=== PATIENT | female | born 1960 | race Caucasian/White ===

== ENCOUNTER 2020-05-31 12:41 | Observation (INO) | payer BC ==
[~2020-05-31] VITALS: Ht 162.6 cm; Wt 82.0 kg
[~2020-05-31 12:41] MED LIST: CIPROFLOXACN500 MG PO; GLIPIZIDE ER5 MG PO; METFORMIN1000 MG PO; PYRIDIUM200 MG PO; ULTRAM50 M1 PO
--- NOTE | 2020-05-31 12:45 | NUR ---
PT AMBULATORY TO ROOM 6 WITH STEADY GAIT. BEDSIDE TRIAGE COMPLETED
--- NOTE | 2020-05-31 13:15 | NUR ---
COVID SWAB COLLECTED, ISOLATION PRECAUTIONS INITIATED.
[2020-05-31 13:25] LABS: HEMOGLOBIN 13.4 g/dl (12.0-16.0); MEAN CELL VOLUME 87.6 fL CALC (80.0-100.0); MEAN CORPUSCULAR HGB 28.6 pG CALC (26.0-32.0); MEAN CORPUSCULAR HGB CONC 32.7 g/dL CAL (32.0-36.0); NEUT# 1.95 thou/uL (2.00-7.15); RED BLOOD COUNT 4.68 mill/uL (4.20-5.60); RED CELL DISTRI WIDTH 12.1 % (11.5-15.5)
[2020-05-31 13:42] LABS: D-DIMER 0.79 mg/L (0.19-0.60)
[2020-05-31 13:44] LABS: ALBUMIN 3.9 g/dL (3.2-5.0); ALKALINE PHOSPHATASE 96 u/l (38-126); AMYLASE 51 u/l (30-110); BUN 10 mg/dL (7-17); BUN/CREATININE RATIO 16 (12-20 (CALC)); CHLORIDE 98 mmol/l (95-108); CREATININE 0.6 mg/dL (0.5-1.0); GFR > 60 ML/MIN (>=60 (CALC)); GFR FOR AFR.AMER. > 60 ML/MIN (>=60 (CALC)); LIPASE 67 u/l (23-300); POTASSIUM 4.2 mmol/l (3.5-5.1); SGOT/AST 34 u/l (14-36); TOTAL PROTEIN 7.2 g/dL (6.3-8.2)
[2020-05-31 13:45] LABS: ANION GAP 19 (6-22 (CALC)); BILIRUBIN, TOTAL 0.7 mg/dL (0.0-1.4); CARBON DIOXIDE 19 mmol/l (22-30); SODIUM 132 mmol/l (137-146)
[2020-05-31 13:49] LABS: ACT PARTIAL THROMBO TIME 24.1 SECONDS (20.0-32.5); PROTHROMBIN TIME 10.3 SECONDS (9.0-12.5)
--- NOTE | 2020-05-31 14:40 | NUR ---
RETURNED FROM RADIOLOGY VIA WHEELCHAIR, [facility].
--- NOTE | 2020-05-31 15:00 | NUR ---
MD AT BEDSIDE TO DISCUSS RESULTS AND POC.
[2020-05-31 15:58] LABS: C-REACTIVE PROTEIN 7.7 mg/dL (0-0.9)
[2020-05-31 16:04] LABS: URINE BILIRUBIN - DIPSTICK NEGATIVE (NEGATIVE); URINE BLOOD DIPSTICK NEGATIVE (NEGATIVE); URINE COLOR YELLOW; URINE GLUCOSE - DIPSTICK 500 mg/dL (NEGATIVE); URINE KETONE >=80 mg/dL (NEGATIVE); URINE LEUK ESTERASE NEGATIVE (NEGATIVE); URINE PH 5.5 (4.5-8.0); URINE PROTEIN - DIPSTICK TRACE mg/dL (NEG-TRACE); URINE UROBILINOGEN - DIPSTICK 0.2 E.U./dL (0.2)
[2020-05-31 16:06] LABS: URINE NITRITE - DIPSTICK NEGATIVE (Negative)
--- NOTE | 2020-05-31 16:19 | NUR ---
REPORT CALLED TO [facility] ON MED SURG.
--- NOTE | 2020-05-31 16:30 | NUR ---
TO MED SURG VIA STRETCHER, TELE MONITOR IN PLACE.
[2020-05-31 16:51] VITALS: BP 124/68
--- NOTE | 2020-05-31 17:02 | NUR ---
59 YEAR OLD WOMAN ADMITTED TO MED SURG UNUT WITH A DX OF COVID 19/PNEUMONIA. PT IS ALERT AND ORIENTED. ABLE TO MAKE NEEDS KNOWN. PRESENTED TO THE ER WITH CHEST TIGHTNESS AND BODY ACHES. ON ROOM AIR. NO C/O SOB. DENIES PAST FAMILY HEALTH HISTORY, DENIESCURRENT PERSONAL HEALTH HISTORY EXCLUDING DIABETES. EDUCATED ON NEW PRESCRIBED MEDS AND BLOOD SUGAR CONTROL. DEMONTRATED VERBAL FEEDBACK UNDERSTANDING. VS WNL. DENIES SMOKING/ALCOHOL USE/RECREATIONAL USE. DENIES PAIN. ORIENTED TO CALL LIGHT USE FOR ASSISTANCE. BELONGINGS PLACED WITHIN REACH. LUNGS CTA.
--- NOTE | 2020-05-31 18:46 | NUR ---
PT FINISHED EATING DINNER. LYING IN BED WITH EYES CLOSED. NO C/O PAIN OR DISTRESS AT THIS TIME.
[2020-05-31 19:00] VITALS: BP 115/68
--- NOTE | 2020-05-31 19:45 | NUR ---
PATIENT UP IN THE BR-AWAKE ALERT AND ORIENTEDX3. STATES THAT SHE WANTS TO TAKE A SHOWER. PATIENT PROVIDED WITH SHOWER SUPPLIES AND TOWELS. SAFETY PRECAUTIONS REINFORCED. CALL LIGHT IN REACH. WILL CONT TO MONITOR.
--- NOTE | 2020-05-31 21:20 | NUR ---
PATIENT RESTING IN XGM-[id number] WAS 431 TONIGHT. SPOKE WITH SOLITARIO LOREDO APRN AND NEW ORDER FOR HUMALOG WAS OBTAINED AND HUMALOG 15UNITS SQ GIVEN RIGHT ARM. PATIENT PROVIDED WITH HS SNACK. LUNGS ARE CLEAR, NON PRODUCTIVE COUGH NOTED. TELE MONITOR IN PLACE. IV SITE TO LAC INTACT AND FLUSHED. LAST BM WAS YESTERDAY 05/30. DENIES ANY DIFFICULTY WITH URINATION. NO PERIPHERAL EDEMA NOTED AND PEDAL PULSES ARE PALPABLE. PATIENT ON ISOLATION IN NEG PRESSURE ROOM FOR COVID. INSTRUCTED ON USE OF IS Q1H WHILE AWAKE IN REPS OF 10-PATIENT IS ABLE TO DEMONSTRATE PROPER USE OF THE DEVICE. ENCOURAGE PATIENT TO PRONE IF POSSIBLE. SAFETY PRECAUTIONS REINFORCED. CALL LIGHT IN REACH. WILL CONT TO MONITOR.
--- NOTE | 2020-05-31 23:12 | NUR ---
PAIENT RESTING IN BED POSITIONED ON RIGHT SIDE. RESPS ARE EVEN AND UNLABORED. CALL LIGHT IN REACH. WILL CONT TO MONITOR.
[2020-06-01] VITALS: BP 122/59
--- NOTE | 2020-06-01 00:27 | NUR ---
PATIENT UP TO THE BR TO VOID AND THEN BACK TO THE BED. PATIENT WITH COLD SWEATS. ACCU-CHECK CHECKED AND WAS 325. O2 SATS 94% ON ROOM AIR. VS ARE STABLE. TELE IN PLACE. CALL LIGHT IN REACH. WILL CONT TO MONITOR.
[2020-06-01 04:00] VITALS: BP 149/86
--- NOTE | 2020-06-01 04:50 | NUR ---
PATIENT RESTING IN BED AT THIS TIME-AWAKE, ALERT AND ORIENTEDX3. PATIENT PROVIDED WITH BIBLE PER PATIENT REQUEST. PATIENT VERBALIZED SOME CONCERNS REGUARDING HER TREATMENT AND QUESTIONS WERE ANSWERED REGUARDING THE ANTIBIOTICS, STEROIDS AND LAB WORK THAT HAS BEEN ORDERED FOR THIS MORNING. EXPRESSED THAT SHE IS NOT GOING TO STAY HERE AFTER THIS MORNING. REINFORCED PLAN OF CARE WITH PATIENT AND ALLOWED PATIENT TO VERBALIZE HER CONCERNS. REASSURANCE WAS GIVEN. SPOKE WITH NSG SEMICONDUCTOR EQUIPMENT TECHNICIAN REGUARDING PATIENT CONCERNS. CALL LIGHT IN REACH. WILL CONT TO MONITOR.
--- NOTE | 2020-06-01 06:20 | NUR ---
PATIENT APPEARS SLEEPING WITH HER EYES CLOSED. RESPS ARE EVEN AND UNLABORED. TELE MONITOR IN PLACE. IV SITE TO LAC INTACT. CALL LIGHTIN REACH. WILL CONT TO MONITOR.
[2020-06-01 07:29] LABS: HEMATOCRIT 39.8 % (37.0-47.0); HEMOGLOBIN 13.3 g/dl (12.0-16.0); IMMATURE GRANULOCYTES 0.9 % (0.0-5.0); MEAN CELL VOLUME 86.7 fL CALC (80.0-100.0); MEAN CORPUSCULAR HGB CONC 33.4 g/dL CAL (32.0-36.0); NEUT# 2.63 thou/uL (2.00-7.15); RED BLOOD COUNT 4.59 mill/uL (4.20-5.60)
[2020-06-01 07:52] LABS: ALBUMIN 3.9 g/dL (3.2-5.0); ALKALINE PHOSPHATASE 94 u/l (38-126); ANION GAP 16 (6-22 (CALC)); BILIRUBIN, TOTAL 0.6 mg/dL (0.0-1.4); BUN 12 mg/dL (7-17); BUN/CREATININE RATIO 24 (12-20 (CALC)); C-REACTIVE PROTEIN 6.4 mg/dL (0-0.9); CARBON DIOXIDE 22 mmol/l (22-30); CHLORIDE 100 mmol/l (95-108); CREATININE 0.5 mg/dL (0.5-1.0); GFR > 60 ML/MIN (>=60 (CALC)); GFR FOR AFR.AMER. > 60 ML/MIN (>=60 (CALC)); POTASSIUM 4.2 mmol/l (3.5-5.1); SGOT/AST 29 u/l (14-36); SODIUM 134 mmol/l (137-146); TOTAL PROTEIN 7.2 g/dL (6.3-8.2)
[2020-06-01 08:16] VITALS: BP 134/68
--- NOTE | 2020-06-01 08:53 | NUR ---
AWAKE AND ALERT THIS MORNING, READING THE BIBLE. ENCOURAGED TO USE INCENTIVE SPIROMETER. DENIES PAIN AND SOB. APPEARS IN NO ACUTE DISTRESS AT THIS TIME.
[2020-06-01] MEDS ORDERED: DEXAMETHASON6 MG PO (08:55)
[2020-06-01] MEDS ORDERED: ZITHROMAX500 MG PO (08:55)
[2020-06-01] MEDS ORDERED: EC ASPIRIN325 MG PO (08:56)
[2020-06-01] MEDS ORDERED: JANUVIA100 MG PO (08:57)
--- NOTE | 2020-06-01 09:30 | NUR ---
PT C/O L ARM PAIN. BACK SIZER MAIDA NOTIFIED. EKG ORDERED AND VS TAKEN. EKG RESULTS PENDING.
[2020-06-01 09:34] VITALS: BP 168/75
--- NOTE | 2020-06-01 10:18 | NUR ---
PT LAYING BED, EYES CLOSED. GIVEN PRN TYLENOL FOR RELIEF. IV ABTS FLOWING. PT DENIES L ARM PAIN AT THIS TIME. PROVIDER MADE AWARE.
[2020-06-01 10:30] VITALS: BP 125/64
[2020-06-01] MEDS ORDERED: GLIPIZIDE5 M2 PO (10:31)
[2020-06-01] MEDS ORDERED: VITAMIN B12500 MC1 PO (10:41)
[2020-06-01] MEDS ORDERED: OMEGA 31000 MG PO (10:42)
[2020-06-01 15:00] VITALS: BP 141/69
--- NOTE | 2020-06-01 15:02 | NUR ---
PT TO BE DISCHARGED. PROVIDED TEACH AND EDUCATION ON COVID PNEUMONIA, DIABETES AND MEDS. DEMONSTRATED UNDERSTANDING WITH VERBAL FEEDBACK. BELONGINGS ARE WITH PT. PT IS FULLY DRESSED. DENIES PAIN. APPEARS IN NO ACUTE DISTRESS WHILE AWAITING TRANSPORTATION.
--- NOTE | 2020-06-01 15:45 | NUR ---
PT DISCHARGED HOME, SPOUSE ARRIVED TO TRANSPORT.
== END 2020-06-01 15:45 | disposition home or self-care (01) | DRG 177 ==
LOC: ED 12:41 → ED-I 14:55 → ED 15:11 → MS2 15:12
PROVIDERS: Nurse Practitioner; ADMIT Internal Medicine; ATTEND Internal Medicine
DX: U07.1 COVID-19 (principal); J12.82 Pneumonia due to coronavirus disease 2019; E87.1 Hypo-osmolality and hyponatremia; E11.65 Type 2 diabetes mellitus with hyperglycemia; R07.9 Chest pain, unspecified; T38.3X6A Underdosing of insulin and oral hypoglycemic [antidiabetic] drugs, initial encounter; Z91.128 Patient's intentional underdosing of medication regimen for other reason
CPT/HCPCS: G0378; J1650; Q9967

== ENCOUNTER 2020-06-09 22:42 | Inpatient (IN) | payer BC ==
[~2020-06-09] VITALS: Ht 162.6 cm; Wt 78.0 kg
[~2020-06-09 22:42] MED LIST changes: +DEXAMETHASON6 MG PO; +EC ASPIRIN325 MG PO; +GLIPIZIDE5 M2 PO; +JANUVIA100 MG PO; +OMEGA 31000 MG PO; +VITAMIN B12500 MC1 PO; +ZITHROMAX500 MG PO
--- NOTE | 2020-06-09 22:42 | NUR ---
BROUGHT FROM CAR TO ROOM VIA WC.
[2020-06-09] MEDS ORDERED: GLIPIZIDE10 M2 PO (23:14)
[2020-06-09] MEDS ORDERED: INVOKANA100 MG PO (23:16)
[2020-06-09 23:41] LABS: HEMOGLOBIN 15.1 g/dl (12.0-16.0); IMMATURE GRANULOCYTES 2.5 % (0.0-5.0); MEAN CELL VOLUME 87.6 fL CALC (80.0-100.0); MEAN CORPUSCULAR HGB 28.4 pG CALC (26.0-32.0); MEAN CORPUSCULAR HGB CONC 32.4 g/dL CAL (32.0-36.0); NEUT# 6.13 thou/uL (2.00-7.15); RED BLOOD COUNT 5.32 mill/uL (4.20-5.60); RED CELL DISTRI WIDTH 12.6 % (11.5-15.5)
[2020-06-09 23:45] LABS: HEMATOCRIT 46.6 % (37.0-47.0)
[2020-06-09 23:54] LABS: ALKALINE PHOSPHATASE 95 u/l (38-126); AMYLASE 62 u/l (30-110); BILIRUBIN, TOTAL 0.8 mg/dL (0.0-1.4); BUN 22 mg/dL (7-17); BUN/CREATININE RATIO 24 (12-20 (CALC)); CHLORIDE 104 mmol/l (95-108); CREATININE 0.9 mg/dL (0.5-1.0); GFR > 60 ML/MIN (>=60 (CALC)); GFR FOR AFR.AMER. > 60 ML/MIN (>=60 (CALC)); LIPASE 78 u/l (23-300); MAGNESIUM 2.2 mg/dL (1.6-2.3); POTASSIUM 4.4 mmol/l (3.5-5.1); SGOT/AST 20 u/l (14-36); SODIUM 136 mmol/l (137-146)
[2020-06-10] VITALS (15 sets, daily range): BP systolic 96–139; BP diastolic 50–68
[2020-06-10] LABS: ACT PARTIAL THROMBO TIME 24.3 SECONDS (20.0-32.5); PROTHROMBIN TIME 10.5 SECONDS (9.0-12.5)
--- NOTE | 2020-06-10 00:01 | NUR ---
PT ASSISTED TO BSC TO VOID THEN BACK TO BED SR NO ECTOPY NO C/O PAIN W/P/D SKIN
[2020-06-10 00:04] LABS: D-DIMER 1.25 mg/L (0.19-0.60)
[2020-06-10 00:06] LABS: MYOGLOBIN 31 ng/mL (0 - 62)
[2020-06-10 00:07] LABS: ALBUMIN 4.7 g/dL (3.2-5.0); ANION GAP 28 (6-22 (CALC)); CARBON DIOXIDE 8 mmol/l (22-30); TOTAL PROTEIN 9.4 g/dL (6.3-8.2)
[2020-06-10 00:39] LABS: URINE BLOOD DIPSTICK SMALL (NEGATIVE); URINE COLOR YELLOW; URINE GLUCOSE - DIPSTICK >=1000 mg/dL (NEGATIVE); URINE KETONE >=80 mg/dL (NEGATIVE); URINE LEUK ESTERASE NEGATIVE (NEGATIVE); URINE PH 5.5 (4.5-8.0); URINE PROTEIN - DIPSTICK 30 mg/dL (NEG-TRACE); URINE SPECIFIC GRAVITY >=1.030; URINE UROBILINOGEN - DIPSTICK 0.2 E.U./dL (0.2)
[2020-06-10 00:45] LABS: URINE BILIRUBIN - DIPSTICK NEGATIVE (NEGATIVE); URINE NITRITE - DIPSTICK NEGATIVE (Negative)
[2020-06-10 00:51] LABS: URINE RBC 0-2 RBC/hpf (0-5); URINE SQUAMOUS EPITHELIAL CELL FEW EPI/hpf (0-FEW)
[2020-06-10 00:52] LABS: URINE HYALINE CAST FEW lpf (NONE-RARE); URINE MUCUS FEW hpf (NONE-FEW)
--- NOTE | 2020-06-10 01:35 | NUR ---
AWAKENED FROM SLEEP W/P/D SKIN SR NO ST T CHANGES DENIES PAIN.
--- NOTE | 2020-06-10 02:17 | NUR ---
ASLEEP AND WITHOUT COMPLAINT SR NO ST T CHANGES NO ECTOPY.SPOUSE AT BEDSIDE CONTINUOUSLY
--- NOTE | 2020-06-10 03:15 | NUR ---
AWAKENED FROM SLEEP FOR VS ASSESSMENT DENIES PAIN W/P/D SKIN SR NO ST T CHANGES
--- NOTE | 2020-06-10 03:31 | NUR ---
PHONE REPORT TO BINTA ON MS2
--- NOTE | 2020-06-10 03:36 | NUR ---
PT TRANSPORTED TO RM 290 VIA IN STABLE CONDITION
--- NOTE | 2020-06-10 03:40 | NUR ---
PT RECEIVED FROM ED TO ROOM 290. ARRIVES VIA STRETCHER ACCOMPANIED BY DAMIAN BARTH. PT TRANSFERED TO THE BED. PT DENIES PAIN AT THIS TIME. PT IS EXTREMELY LETHARGIC AND ANSWERS QUESTIONS WITH DIFFICULTY STAYING AWAKE. PT ORIENTED TO UNIT, ROOM, CALL BLANCO, LIGHTS, TV. ICE WATER PROVIDED. CALL BLANCO WITHIN REACH. AGREES TO CALL PRN.
--- NOTE | 2020-06-10 04:28 | NUR ---
PHYSICAL ASSESMENT COMPLETE. PT CURRENTLY DENIES PAIN OR DISCOMFORT. SCHEDULED MEDICATIONS AND PRN MEDICATION ADMINISTERED, SEE E-MAR. PT DENIES ANY NEEDS AT THIS TIME. PLAN OF CARE REVIEWED, PT DENIES QUESTIONS, VERBALIZES UNDERSTANDING. ITEMS WITHIN REACH, BED LOCKED IN LOW POSITION W/ BEDRAILS UP X2. CALL BLANCO WITHIN REACH, AGREES TO CALL PRN.
--- NOTE | 2020-06-10 07:35 | NUR ---
PATIENT RESTING IN BED AT THIS TIME. SHOVEL MECHANIC DONE SEE INTERVENTIONS. PATIENT LUNG SOUNDS ASSESSED AND CLEAR IN MIDDLE AND UPPER LOBES BILATERALLY AND DIMINISHED IN LOWER BILATERAL LOBES NOTED. PATIENT DENEIS ANY PAIN AT THIS TIME AND IS ALERT AND ORIENTED X 3 NEURO CHECK REMAINED UNCHANGED SINCE ADMISSION. SIDERAILS ARE UP CALL LIGHT WITHIN REACH.
[2020-06-10 10:20] LABS: ANION GAP 17 (6-22 (CALC)); BUN 17 mg/dL (7-17); BUN/CREATININE RATIO 30 (12-20 (CALC)); CHLORIDE 114 mmol/l (95-108); CREATININE 0.6 mg/dL (0.5-1.0); GFR > 60 ML/MIN (>=60 (CALC)); GFR FOR AFR.AMER. > 60 ML/MIN (>=60 (CALC)); POTASSIUM 3.7 mmol/l (3.5-5.1); SODIUM 136 mmol/l (137-146)
--- NOTE | 2020-06-10 10:27 | NUR ---
MIRANDA FROM LAB CALLED THIS NURSE AND REPORTED A CRITICAL CO2 LEVEL OF [address] GUZMAN HERE AND INFORMATION GIVEN AND ORDERS TO TRANSFER PATIENT TO ICU GIVEN FOR DKA PROTOCOL. ICU NURSE CE CALLED AND PATIENT GIVEN BED 5 TO BE TRANSFERED TO.
[2020-06-10 10:28] LABS: CARBON DIOXIDE 9 mmol/l (22-30)
--- NOTE | 2020-06-10 11:00 | NUR ---
REPORT CALLED TO OSMAR AT THIS TIME. PATIENT TO BE TRANSFERED.
--- NOTE | 2020-06-10 12:00 | NUR ---
RECEIVED PT. FROM MS WITH RN AT BEDSIDE@[id number]. PT. AMBULATORY AND ABLE TO GET INTO BED WITH STEADY GAIT. VSS. ACCUCHECK 151; AWAITING PHARMAY TO FIX BARCODE IN EMAR TO SCAN FOR IVF TO BE HUNG. UPDATED PT. ON POC AND PER PT. SHE WILL CALL AND LET HIM KNOW SHE IS IN ICU NOW, NO NEED FOR STAFF TO CALL. LABORATORY INSPECTOR IN PLACE AND READING SR. EDUCATED SNATH HANDLE ASSEMBLER LIGHT AND ROOM; VERBALIZES UNDERSTANDING.
--- NOTE | 2020-06-10 13:00 | NUR ---
SECOND IV SITE STARTED TO RAC X2 ATTEMPT AND ACCUCHECK 194; INSULIN GTT STARTED @2MLS/HR PER PROTOCOL;WILL CONTINUE TO MONITOR. PT. DENIES NEEDS/PAIN AT THIS TIME. ENCOURAGED TO CALL FOR ANY NEEDS.
[2020-06-10 14:33] LABS: ANION GAP 15 (6-22 (CALC)); BUN 18 mg/dL (7-17); BUN/CREATININE RATIO 32 (12-20 (CALC)); CHLORIDE 114 mmol/l (95-108); CREATININE 0.6 mg/dL (0.5-1.0); GFR > 60 ML/MIN (>=60 (CALC)); GFR FOR AFR.AMER. > 60 ML/MIN (>=60 (CALC)); POTASSIUM 3.9 mmol/l (3.5-5.1); SODIUM 136 mmol/l (137-146)
[2020-06-10 14:37] LABS: CARBON DIOXIDE 11 mmol/l (22-30)
--- NOTE | 2020-06-10 15:20 | NUR ---
DR. GUZMAN UPDATED WITH CURRENT LABS WELL FLUIDS AND LAST ACCUCHECK; NO NEW ORDERS RECEIVED.
--- NOTE | 2020-06-10 17:31 | NUR ---
PT. RESTING IN BED WITH NO DISTRESS NOTED; DENIES NEED/PAIN. CALL LIGHT IS IN REACH. WILL CONTINUE TO MONITOR.
--- NOTE | 2020-06-10 19:30 | NUR ---
RESTING IN BED. AWAKE, ALERT AND ORIENTED X4. RESP NON-LABORD. RA O2 SAT 97% BREATH SOUNDS SLT COARSE IN BILATERAL LOWER LOBES. NON-PRODUCTIVE COUGH. ALVINA HOSE ON. NO PERIPHERAL EDEAMA, PULSES INTACT. IV IN LAC WITH INSULIN GTT AT 3 UNITS/HR AND IV IN RAC WITH D51/2 WITH 40 KCL AT 125 ML/HR. BOTH IV SITES HEALTHY. BAIT TIER SHOWS SR. BLOOD DRAWN FOR CHEMISTRY AND SENT TO LAB. DISCUSSED PLAN OF CARE. DENIES NEEDS AT THIS TIME. CALL BLANCO IN REACH.
[2020-06-10 20:01] LABS: ANION GAP 9 (6-22 (CALC)); BUN 17 mg/dL (7-17); BUN/CREATININE RATIO 27 (12-20 (CALC)); CHLORIDE 112 mmol/l (95-108); CREATININE 0.6 mg/dL (0.5-1.0); GFR > 60 ML/MIN (>=60 (CALC)); GFR FOR AFR.AMER. > 60 ML/MIN (>=60 (CALC)); POTASSIUM 3.9 mmol/l (3.5-5.1); SODIUM 134 mmol/l (137-146)
[2020-06-10 20:02] LABS: CARBON DIOXIDE 17 mmol/l (22-30)
--- NOTE | 2020-06-10 20:30 | NUR ---
INFORMED DR GUZMAN OF CHEM RESULTS. NEW ORDERS RECEIVED.
--- NOTE | 2020-06-10 21:45 | NUR ---
SCHEDULED DOSE OF HUMULIN N 10 UNITS GIVEN AT THIS TIME AND IV FLUIDS CHANGED TO 1/2 NS WITH 20 KCL AT 100 ML/HR ORDERED.
--- NOTE | 2020-06-10 23:45 | NUR ---
INSULIN GTT DC'D ORDERED 2 HOURS AFTER DOSE OF HUMULIN N GIVEN. LAC IV SITE SALINE LOCKED.
[2020-06-11] VITALS (12 sets, daily range): BP systolic 86–121; BP diastolic 41–65
--- NOTE | 2020-06-11 02:00 | NUR ---
RESTING WITH EYES CLOSED. RESP NON-LABORED. VSS. SR ON MONITOR.
--- NOTE | 2020-06-11 04:00 | NUR ---
SLEEPS FOR LONG INTERVALS. VSS. SR ON MONITOR. IV INFUSING WITHOUT INCIDENT.
--- NOTE | 2020-06-11 05:59 | NUR ---
SLEPT WELL. VSS. RESP NON-LABORED. IV INFUSING WITHOUT INCIDENT INTO RAC SITE SALINE LOCK IN LAC.
[2020-06-11 06:20] LABS: IMMATURE GRANULOCYTES 1.7 % (0.0-5.0); MEAN CELL VOLUME 86.4 fL CALC (80.0-100.0); MEAN CORPUSCULAR HGB 28.6 pG CALC (26.0-32.0); MEAN CORPUSCULAR HGB CONC 33.1 g/dL CAL (32.0-36.0); NEUT# 2.18 thou/uL (2.00-7.15); RED BLOOD COUNT 3.98 mill/uL (4.20-5.60); RED CELL DISTRI WIDTH 12.5 % (11.5-15.5)
[2020-06-11 06:22] LABS: HEMATOCRIT 34.4 % (37.0-47.0); HEMOGLOBIN 11.4 g/dl (12.0-16.0)
[2020-06-11 06:35] LABS: ALKALINE PHOSPHATASE 70 u/l (38-126); ANION GAP 9 (6-22 (CALC)); BILIRUBIN, TOTAL 0.6 mg/dL (0.0-1.4); BUN 14 mg/dL (7-17); BUN/CREATININE RATIO 24 (12-20 (CALC)); CARBON DIOXIDE 19 mmol/l (22-30); CHLORIDE 111 mmol/l (95-108); CREATININE 0.6 mg/dL (0.5-1.0); GFR > 60 ML/MIN (>=60 (CALC)); GFR FOR AFR.AMER. > 60 ML/MIN (>=60 (CALC)); POTASSIUM 3.8 mmol/l (3.5-5.1); SGOT/AST 15 u/l (14-36); SODIUM 135 mmol/l (137-146)
[2020-06-11 06:36] LABS: ALBUMIN 2.9 g/dL (3.2-5.0); TOTAL PROTEIN 5.9 g/dL (6.3-8.2)
--- NOTE | 2020-06-11 07:17 | NUR ---
PT REPORT RECEIVED FROM CAKE KNOCKER. PT SLEEPING AT THIS TIME, VITAL SIGNS STABLE.
--- NOTE | 2020-06-11 09:50 | NUR ---
PT RESTING QUIETLY ON BED, DENIES ANY COMPLAINTS AT THIS TIME. VITAL SIGNS STABLE. IV FLUIDS STILL INFUSING JUAN DIEGO 100, ADVISED PT WILL BE TRANSFERRED TO MED SURG TODAY AND SHE VOICED UNDERSTANDING
--- NOTE | 2020-06-11 12:30 | NUR ---
COVID TEST OBTAINED
--- NOTE | 2020-06-11 12:39 | NUR ---
PT RESTING QUIETLY ON BED, NO COMPLAINTS AT THIS TIME.
--- NOTE | 2020-06-11 14:15 | NUR ---
REPORT GIVEN TO MED SURG FOR TRANSFER TO BED 272.
--- NOTE | 2020-06-11 14:28 | NUR ---
REPORT WAS RECEIVED FROM CYRIL SLAUGHTER. PATIENT CAME FROM ICU VIA WHEELCHAIR. PATIENT REQUESTING TO TAKE A SHOWER. GREENSKEEPER LABORER WILL SETUP PATIENT FOR A SHOWER. PATIENT DENIES PAIN OR ANY OTHER NEEDS AT THIS TIME. CALL LIGHT IN REACH.
--- NOTE | 2020-06-11 14:35 | NUR ---
PT TAKEN TO MED SURG PER W/C
--- NOTE | 2020-06-11 16:00 | NUR ---
PATIENT IS RESTING IN BED WITH NO S/S OF DISTRESS NOTED. TELE IN PLACE. PATIENT DENIES NEEDS AT THIS TIME. CALL LIGHT IN REACH.
--- NOTE | 2020-06-11 19:58 | NUR ---
PATIENT RESTING IN BED AT THIS TIME-AWAKE ALERT AND ORIENTEDX3. PATIENT WITH C/O CONSTIPATION WITH NO BM FOR LAST 4 DAYS PER PATIENT. ABD IS SOFT WITH ACTIVE BS. PATIENT MEDICATED WITH MOM AND PRUNE JUICE FOR CONSTIPATION. PATIENT WITH NON PRODUCTIVE COUGH. HX OF COVID A FEW WEEKS AGO. O2 SAT ON RA IS 100%. LUNGS ARE CLEAR. TELE MONITOR IN PLACE. IVF 1/2NS 20MEQ KCL PATENT AND INFUSING VIA RAC SITE AT 100CC/HR. SITE IS HEALTHY. IV TO LAC OCCUDED AND WAS D/C WITH CATH INTACT. SAFETY NPRECAUTIONS REINFORCED. CALL LIGHT IN REACH. WILL CONT TO MONITOR.
--- NOTE | 2020-06-11 21:30 | NUR ---
ACCU-CHECK WAS 240-COVERED WITH HUMALOG 4UNITS SQ PER SLIDING SCALE PROTOCOL. HS SNACK PROVIDED. PATIENT STATES THAT SHE DID HAVE A BM AND THAT SHE IS FEELING BETTER SINCE. SAFETY PRECAUTIONS REINFORCED. CALL LIGHT IN REACH. WILL CONT TO MONITOR.
[2020-06-12] VITALS: BP 119/61
--- NOTE | 2020-06-12 00:31 | NUR ---
PATIENT RESTING IN BED AT THIS TIME-EYES CLOSED, RESPS ARE EVEN AND UNLABORED. IVF PATENT AND INFUSING VIA RAC SITE AT 100CC/HR. TELE MONITOR IN PLACE. CALL LIGHT IN REACH. WILL CONT TO MONITOR.
[2020-06-12 04:00] VITALS: BP 116/65
--- NOTE | 2020-06-12 04:04 | NUR ---
PATIENT CALLED AND STATES THAT SHE IS "CLAMMY". RESPONDED TO PATIENT ROOM-VS TAKEN-116/65, HR-71, O2 SAT 95% ON RA. AFEBRILE-96.9. ACCU-CHECK WAS DONE-181. TELE MONITOR IN PLACE. IVF PATENT AND INFUSING VIA RAC SITE AT 100CC/HR. PATIENT NOW STATES THAT SHE IS FEELING BETTER. LAB WORK TO BE DRAWN. CALL LIGHT IN REACH. WILL CONT TO MONITOR.
--- NOTE | 2020-06-12 04:11 | NUR ---
PATIENT RESTING IN BED-REFUSING AM LAB WORK AT THIS TIME-WILL CONT TO MONITOR.
[2020-06-12 07:21] VITALS: BP 105/68
--- NOTE | 2020-06-12 07:52 | NUR ---
SHIFT CHANGE REPORT, PT SLEEPING BUT AROUSES TO VERBAL STIMULI, NO C/O PAIN BUT STATES SHE DIDNT HAVE A GOOD NIGHT, IVF INFUSING, TELE MONITOR IN PLACE, CALL BLANCO IN REACH.
[2020-06-12 10:52] LABS: HEMATOCRIT 38.7 % (37.0-47.0); HEMOGLOBIN 13.1 g/dl (12.0-16.0); IMMATURE GRANULOCYTES 1.6 % (0.0-5.0); MEAN CORPUSCULAR HGB 29.1 pG CALC (26.0-32.0); MEAN CORPUSCULAR HGB CONC 33.9 g/dL CAL (32.0-36.0); NEUT# 2.2 thou/uL (2.00-7.15); RED BLOOD COUNT 4.5 mill/uL (4.20-5.60); RED CELL DISTRI WIDTH 12.7 % (11.5-15.5)
[2020-06-12 10:53] VITALS: BP 105/55
[2020-06-12 10:59] LABS: ALBUMIN 3.7 g/dL (3.2-5.0); ALKALINE PHOSPHATASE 92 u/l (38-126); ANION GAP 12 (6-22 (CALC)); BILIRUBIN, TOTAL 0.6 mg/dL (0.0-1.4); BUN 13 mg/dL (7-17); BUN/CREATININE RATIO 25 (12-20 (CALC)); CARBON DIOXIDE 26 mmol/l (22-30); CHLORIDE 99 mmol/l (95-108); CREATININE 0.5 mg/dL (0.5-1.0); GFR > 60 ML/MIN (>=60 (CALC)); GFR FOR AFR.AMER. > 60 ML/MIN (>=60 (CALC)); POTASSIUM 3.8 mmol/l (3.5-5.1); SGOT/AST 27 u/l (14-36); SODIUM 133 mmol/l (137-146); TOTAL PROTEIN 6.9 g/dL (6.3-8.2)
--- NOTE | 2020-06-12 12:00 | NUR ---
RESTING IN BED, STATES SHE DID NOT SLEEP LAST NIGHT AND WOULD LIKE TO REST, ADVISED HOSP IS NOT THE BEST PLACE TO REST AND STAFF HAS TO CONSTANTLY ASSESS AND MONITOR, CALL BLANCO IN REACH.
[2020-06-12] MEDS ORDERED: JANUVIA100 MG PO (13:48)
[2020-06-12] MEDS ORDERED: GLIPIZIDE5 M2 PO (13:48)
[2020-06-12] MEDS ORDERED: HUMULIN N100 UNIT/M SC (14:01)
[2020-06-12] MEDS ORDERED: ACCU-CHEK FASTCLIX L XX (14:03)
[2020-06-12 15:48] VITALS: BP 100/54
--- NOTE | 2020-06-12 16:03 | NUR ---
Discharge instructions given. Patient verbalizes understanding of same. Discharged in fair condition via Wheelchair to Home with spouse. All belongings sent with pt.
== END 2020-06-12 16:04 | disposition home or self-care (01) | DRG 638 ==
LOC: ED 22:42 → ED-I 06-10 02:50 → ED 06-10 03:07 → MS2 06-10 03:08 → ICU 06-10 11:40 → MS2 06-11 14:28
PROVIDERS: Family Medicine; Nurse Practitioner; Nurse Practitioner Family; ADMIT Internal Medicine; ATTEND Internal Medicine
DX: E11.10 Type 2 diabetes mellitus with ketoacidosis without coma (principal); E87.1 Hypo-osmolality and hyponatremia; Z79.84 Long term (current) use of oral hypoglycemic drugs; Z86.16 Personal history of COVID-19
CPT/HCPCS: J1650; Q9967

== ENCOUNTER 2021-08-21 17:58 | Emergency (ER) | payer BC ==
[~2021-08-21 17:58] MED LIST changes: +ACCU-CHEK FASTCLIX L XX; +GLIPIZIDE10 M2 PO; +HUMULIN N100 UNIT/M SC; +INVOKANA100 MG PO
== END 2021-08-21 22:03 | disposition left against medical advice (07) | DRG 951 ==
LOC: ED 17:58 → LWOBS 22:03
DX: Z53.21 Procedure and treatment not carried out due to patient leaving prior to being seen by health care provider (principal)

== ENCOUNTER 2024-05-26 02:48 | Observation (INO) | payer OTHER ==
[2024-05-26] VITALS (21 sets, daily range): BP systolic 114–169; BP diastolic 46–91
[~2024-05-26] VITALS: Ht 162.6 cm; Wt 73.4 kg
[2024-05-26] MEDS ORDERED: SODIUM CHLORIDE 0.9% 1,000 ML IV ONE ×3 (03:00→06:40)
[2024-05-26] MEDS ORDERED: ONDANSETRON HCl 4 MG/2 ML SDV IV ONE ×2 (03:00→04:25)
[2024-05-26] MEDS ORDERED: Pantoprazole Sodium 40 MG VIAL (Protonix) IV ONE ×2 (03:00→04:05)
[2024-05-26 03:21] LABS: BASO% 0.3 % (0-3); EOS% 0.5 % (0-8); LYMPH% 19.6 % (15-41); MEAN CELL VOLUME 90.4 fL CALC (80.0-100.0); MEAN CORPUSCULAR HGB 29.3 pG CALC (26.0-32.0); MEAN CORPUSCULAR HGB CONC 32.4 g/dL CAL (32.0-36.0); MONO% 4.5 % (2-13); NEUT# 7.72 thou/uL (2.00-7.15); NEUT% 74.1 % (42-76); RED BLOOD COUNT 5.33 mill/uL (4.20-5.60); RED CELL DISTRI WIDTH 12.3 % (11.5-15.5)
[2024-05-26 03:28] LABS: HEMATOCRIT 48.2 % (37.0-47.0); HEMOGLOBIN 15.6 g/dl (12.0-16.0)
[2024-05-26 03:37] LABS: ALKALINE PHOSPHATASE 118 u/l (38-126); BILIRUBIN, TOTAL 0.7 mg/dL (0.02-1.3); BUN 9 mg/dL (8-23); BUN/CREATININE RATIO 12 (12-20 (CALC)); CHLORIDE 108 mmol/l (95-108); CREATININE 0.8 mg/dL (0.5-1.0); ESTIMATED GFR 84 ML/MIN (>=90 (CALC)); LIPASE 73 u/l (23-300); POTASSIUM 4.1 mmol/l (3.5-5.1); SGOT/AST 19 u/l (9-36); SODIUM 138 mmol/l (137-146); TOTAL PROTEIN 7.9 g/dL (6.3-8.2)
[2024-05-26 03:48] LABS: ALBUMIN 4.5 g/dL (3.2-5.0); ANION GAP 25 (6-22 (CALC))
[2024-05-26 03:49] LABS: CARBON DIOXIDE 9 mmol/l (22-30)
[2024-05-26] MEDS ORDERED: INSULIN REGULAR (HUMAN) 100 UNIT/ML INJ IV ONE (03:55)
[2024-05-26] MEDS ORDERED: LIDOCAINE VISCOUS 2% 15 ML UDC PO ONE (04:10)
[2024-05-26] MEDS ORDERED: ALUM & MAG HYDROX-SIMETHICONE 30 ML PO ONE (04:10)
[2024-05-26] MEDS ORDERED: MORPHINE SULFATE 4 MG/ML VIAL IV ONE (04:25)
[2024-05-26 06:19] LABS: URINE BLOOD DIPSTICK Negative (NEGATIVE); URINE COLOR Yellow; URINE GLUCOSE - DIPSTICK 500 mg/dL (NEGATIVE); URINE KETONE >=160 mg/dL (NEGATIVE); URINE LEUK ESTERASE Negative (NEGATIVE); URINE NITRITE - DIPSTICK Negative (Negative); URINE PROTEIN - DIPSTICK 100 mg/dL (NEG-TRACE); URINE SPECIFIC GRAVITY 1.025; URINE UROBILINOGEN - DIPSTICK 0.2 E.U./dL (0.2)
[2024-05-26 06:21] LABS: ANION GAP 17 (6-22 (CALC)); BUN 8 mg/dL (8-23); BUN/CREATININE RATIO 13 (12-20 (CALC)); CARBON DIOXIDE 11 mmol/l (22-30); CHLORIDE 115 mmol/l (95-108); CREATININE 0.6 mg/dL (0.5-1.0); ESTIMATED GFR 102 ML/MIN (>=90 (CALC)); POTASSIUM 4.2 mmol/l (3.5-5.1); SODIUM 139 mmol/l (137-146)
[2024-05-26 06:36] LABS: URINE MUCUS FEW hpf (NONE-FEW); URINE RBC 0-2 RBC/hpf (0-5); URINE SQUAMOUS EPITHELIAL CELL FEW EPI/hpf (0-FEW)
[2024-05-26] MEDS ORDERED: OZEMPIC2 MG (06:43)
[2024-05-26] MEDS ORDERED: SODIUM CHLORIDE 0.9% 1,000 ML IV PRN (06:45)
[2024-05-26] MEDS ORDERED: GLIPIZIDE10 M3 (06:45)
[2024-05-26] MEDS ORDERED: ACETAMINOPHEN 325 MG/TAB PO PRN (06:45)
[2024-05-26] MEDS ORDERED: MAGNESIUM HYDROXIDE 30 ML UDC PO PRN (06:45)
[2024-05-26] MEDS ORDERED: ONDANSETRON HCl 4 MG/2 ML SDV IV PRN (06:50)
[2024-05-26] MEDS ORDERED: MORPHINE SULFATE 4 MG/ML VIAL IV PRN (06:50)
[2024-05-26] MEDS ORDERED: DEXTROSE 250 ML IV PRN (07:35)
[2024-05-26] MEDS ORDERED: INSULIN GLARGINE 100 UNITS/ML SC SCH (09:00)
[2024-05-26 10:11] LABS: CHOLESTEROL HDL RATIO 4.8 (<4.4 (CALC))
[2024-05-26] MEDS ORDERED: INSULIN LISPRO 100 UNITS/ML ML SC SCH ×2 (11:00→11:30)
[2024-05-26] MEDS ORDERED: FLUCONAZOLE 150 MG/TAB PO SCH (12:30)
[2024-05-26 15:18] LABS: CREATININE 0.6 mg/dL (0.5-1.0)
[2024-05-27] VITALS (7 sets, daily range): BP systolic 129–156; BP diastolic 49–69
[2024-05-27 05:41] LABS: BASO% 0.5 % (0-3); EOS% 1.9 % (0-8); IMMATURE GRANULOCYTES 0.5 % (0.0-5.0); LYMPH% 32.7 % (15-41); MEAN CELL VOLUME 89.5 fL CALC (80.0-100.0); MEAN CORPUSCULAR HGB 30.4 pG CALC (26.0-32.0); MEAN CORPUSCULAR HGB CONC 33.9 g/dL CAL (32.0-36.0); MONO% 6.1 % (2-13); NEUT# 2.19 thou/uL (2.00-7.15); NEUT% 58.3 % (42-76); RED BLOOD COUNT 3.82 mill/uL (4.20-5.60); RED CELL DISTRI WIDTH 12.1 % (11.5-15.5)
[2024-05-27 05:42] LABS: HEMATOCRIT 34.2 % (37.0-47.0); HEMOGLOBIN 11.6 g/dl (12.0-16.0)
[2024-05-27 05:58] LABS: CREATININE 0.6 mg/dL (0.5-1.0); MAGNESIUM 1.7 mg/dL (1.6-2.3); POTASSIUM 3.7 mmol/l (3.5-5.1)
[2024-05-27 06:01] LABS: BILIRUBIN, TOTAL 0.4 mg/dL (0.02-1.3); TOTAL PROTEIN 5.5 g/dL (6.3-8.2)
[2024-05-27] MEDS ORDERED: INSULIN GLARGINE 100 UNITS/ML SC SCH (09:00)
[2024-05-27] MEDS ORDERED: LOSARTAN Potassium 25 MG/TAB PO SCH (11:30)
[2024-05-27] MEDS ORDERED: ATORVASTATIN CALCIUM 10 MG/TAB PO SCH (21:00)
[2024-05-28 03:25] VITALS: BP 125/58
[2024-05-28 04:00] VITALS: BP 125/58
[2024-05-28 05:02] LABS: BASO% 0.5 % (0-3); EOS% 2.1 % (0-8); HEMATOCRIT 36.2 % (37.0-47.0); HEMOGLOBIN 12.5 g/dl (12.0-16.0); IMMATURE GRANULOCYTES 0.5 % (0.0-5.0); LYMPH% 33.8 % (15-41); MEAN CORPUSCULAR HGB CONC 34.5 g/dL CAL (32.0-36.0); MONO% 6.4 % (2-13); NEUT# 2.4 thou/uL (2.00-7.15); NEUT% 56.7 % (42-76); RED BLOOD COUNT 4.16 mill/uL (4.20-5.60)
[2024-05-28 05:05] LABS: ALBUMIN 3.2 g/dL (3.2-5.0); BILIRUBIN, TOTAL 0.5 mg/dL (0.02-1.3); CREATININE 0.5 mg/dL (0.5-1.0); MAGNESIUM 1.7 mg/dL (1.6-2.3); POTASSIUM 3.2 mmol/l (3.5-5.1); TOTAL PROTEIN 5.9 g/dL (6.3-8.2)
[2024-05-28 07:00] VITALS: BP 123/59
[2024-05-28 08:44] VITALS: BP 106/38
[2024-05-28 08:48] VITALS: BP 116/65
[2024-05-28 09:49] VITALS: BP 116/65
[2024-05-28] MEDS ORDERED: ATORVASTATIN CA20 MG PO (10:07)
[2024-05-28] MEDS ORDERED: LOSARTAN POTASS25 MG PO (10:07)
[2024-05-28] MEDS ORDERED: HUMALOG100 UNIT SC (10:09)
[2024-05-28] MEDS ORDERED: LANTUS100 UNIT SC (10:09)
[2024-05-28] MEDS ORDERED: FLUCONAZOLE 150 MG/TAB PO SCH (10:15)
[2024-05-28] MEDS ORDERED: MAGNESIUM HYDROXIDE 30 ML UDC PO SCH (12:00)
== END 2024-05-28 12:57 | disposition home or self-care (01) | DRG 638 ==
LOC: ED 02:48 → ED-I 06:30 → ED 06:43 → MS2 06:44
PROVIDERS: Family Medicine; Nurse Practitioner Family; ADMIT Internal Medicine; ATTEND Internal Medicine
DX: E11.10 Type 2 diabetes mellitus with ketoacidosis without coma (principal); E87.1 Hypo-osmolality and hyponatremia; B37.31 Acute candidiasis of vulva and vagina; K59.00 Constipation, unspecified; I10 Essential (primary) hypertension; T38.3X6A Underdosing of insulin and oral hypoglycemic [antidiabetic] drugs, initial encounter; Z91.128 Patient's intentional underdosing of medication regimen for other reason; Z79.85 Long-term (current) use of injectable non-insulin antidiabetic drugs; Z79.84 Long term (current) use of oral hypoglycemic drugs; Z20.822 Contact with and (suspected) exposure to COVID-19; Z86.16 Personal history of COVID-19
CPT/HCPCS: J1815; J2405; J2470